=== PATIENT | female | born 1995 | race Caucasian/White ===

== ENCOUNTER 2016-09-27 21:17 | Inpatient (IN) | payer MEDICAID ==
[~2016-09-27] VITALS: Ht 172.7 cm
--- NOTE | ~2016-09-27 | OR ---
PATIENT'S NAME: [address] [facility] AGE: 21 Y [address] ROOM: [place] [address] LOCATION: GOBS ADMIT DATE: 09/27/2016 OR/Procedure Report DISCHARGE DATE: FAMILY PHYSICIAN: PHYSICIAN, NO ATTENDING PHYSICIAN: Rosa Gonzalez SURGEON: Rosa Gonzalez MD FERTILIZER LOADER: Dr. Cabrera Felipe. Dr. Felipe was necessary for adequate visualization of tissues and delivery of the fetus. DATE OF PROCEDURE: 09/28/2016 PREOPERATIVE DIAGNOSES: 1. Intrauterine at 39 weeks and 2 days. 2. Premature rupture of membranes. 3. Recurrent late heart rate decelerations. POSTOPERATIVE DIAGNOSES: 1. Intrauterine at 39 weeks and 2 days. 2. Premature rupture of membranes. 3. Recurrent late heart rate decelerations. PROCEDURE PERFORMED: Primary low transverse section. ANESTHESIA: Epidural. ESTIMATED BLOOD LOSS: 500 mL. FINDINGS: Male . score of 9 and 10. Weight 6 pounds and 11 ounces. Intact placenta, 3-vessel cord. Normal uterus, tubes, and ovaries. DRAINS: None. SPECIMENS: Placenta. COMPLICATIONS: None. INDICATIONS: This patient is a 21-year-old, G1, female who presented to Labor and Delivery at 39 weeks and 2 days gestation with premature rupture of membranes. She required Pitocin for labor induction. She did not progress for several hours, but then began to make some cervical change. When she made cervical change to about 4 to 5 cm, she began having late heart rate decelerations which were repetitive in nature. She still did have a moderate variability, so we decided to stop the Pitocin and watch the heart rate for a while. She continued to have late heart rate decelerations PATIENT'S NAME: [address] [facility] AGE: 21 Y [address] ROOM: [place] [address] LOCATION: [facility] ADMIT DATE: 09/27/2016 OR/Procedure Report DISCHARGE DATE: FAMILY PHYSICIAN: PHYSICIAN, NO ATTENDING PHYSICIAN: Rosa Gonzalez despite the fact that the Pitocin was stopped; and despite the maternal positioning, she was still only 5 cm, -1 station, about 90% effaced. At that point, decision was made for section due to the intolerance to labor. The risks, benefits, and alternatives to the procedure were discussed with the patient. She understood the risks to be, but not to be limited to bleeding, infection, damage to the bowel, bladder, ureter, and surrounding organs and desired to proceed. DESCRIPTION OF PROCEDURE: The patient was taken to the operating room. Anesthesia was found to be adequate. She was prepped and draped in dorsal supine position with leftward tilt. A Pfannenstiel skin incision was made. It was carried down through to the fascia. The fascia was incised across the midline. The fascial incision was extended. The rectus muscles were . The peritoneum was entered. The bladder blade was inserted. The uterus was incised in a low transverse fashion with the scalpel. The uterine incision was extended with vertical traction. Surgeon's hand was inserted into the uterus. The head was delivered. The rest of fetus delivered. The nose and mouth were bulb suctioned. Cord was clamped and cut. The was handed to awaiting team. Cord blood was drawn. Cord pH was drawn. The placenta delivered with manual traction. Uterus was exteriorized and cleared of clots and debris. It was repaired with 0 Vicryl in running locked fashion with hemostasis noted. It was returned to the abdomen. The gutters were cleared of clots and debris. Hemostasis was again noted. The fascia was repaired with 0 Vicryl. The subcutaneous adipose tissue was reapproximated with 2-0 Vicryl suture. The skin was closed with 4-0 Vicryl suture and Steri- Strips were placed. COMPLICATIONS: None. CONDITION: Mom stable in room. to nursery. MD OLIVIA WHATLEY/williams /[id number] d: 09/29/16 0706 t: 10/06/16 0914, OPERATIVE SUMMARY
[~2016-09-27 21:17] MED LIST: PRENATAL 1+1)(P1 TAB PO
[2016-09-27 23:21] LABS: BASOPHIL % 0.2 %; EOSINOPHIL # 0.1 K/uL (0.0-0.5); HEMOGLOBIN 12.7 g/dL (11.0-15.0); IMMATURE GRANULOCYTE # 0.1 K/uL (0.0-0.3); LYMPHOCYTE # 2.9 K/uL (0.8-4.0); LYMPHOCYTE % 22.9 %; MCH 31.4 pg (27.0-34.0); MCHC 32.6 gm/dL (32.0-36.5); MCV 96.5 fl (83.0-98.0); MONOCYTE # 0.9 K/uL (0.0-1.0); MONOCYTE % 7.1 %; NEUTROPHIL # (ANC) 8.5 K/uL (1.8-7.8); NEUTROPHIL % 67.8 %; NRBC % 0 /100WBC (0-0.00); PLATELET COUNT 222 K/uL (150-450); RBC 4.04 M/uL (3.50-5.00); RDW-CV 13.6 % (11.9-14.6); WBC 12.5 K/uL (4.0-11.0)
[2016-09-28 11:51] LABS: PCO2 53 mmHg (35-45)
[2016-09-28 11:52] LABS: BICARBONATE 24.7 mmol/L (18.0-23.0); PO2 22 mmHg (80-90)
--- NOTE | 2016-09-28 17:45 | NUR ---
17:1745 VSS. ff 1-2F below umbil.. small rubra flow. Percocet @ 1557. Toradol @ 1736. u/o wnl 3rd 1 hr vs @ 1900.
[2016-09-29 04:06] LABS: BASOPHIL % 0.3 %; EOSINOPHIL # 0.1 K/uL (0.0-0.5); EOSINOPHIL % 0.9 %; HEMOGLOBIN 10.1 g/dL (11.0-15.0); IMMATURE GRANULOCYTE # 0.1 K/uL (0.0-0.3); IMMATURE GRANULOCYTE % 0.6 %; LYMPHOCYTE # 3.2 K/uL (0.8-4.0); LYMPHOCYTE % 25.4 %; MCV 96.5 fl (83.0-98.0); MONOCYTE # 0.9 K/uL (0.0-1.0); MONOCYTE % 7.2 %; MPV 10.5 fl (9.4-12.4); NEUTROPHIL # (ANC) 8.3 K/uL (1.8-7.8); NEUTROPHIL % 65.6 %; NRBC % 0 /100WBC (0-0.00); RBC 3.16 M/uL (3.50-5.00); RDW-CV 13.7 % (11.9-14.6); WBC 12.7 K/uL (4.0-11.0)
[2016-09-29 04:09] LABS: HEMATOCRIT 30.5 % (33.0-46.0); MCHC 33.1 gm/dL (32.0-36.5); PLATELET COUNT 164 K/uL (150-450)
--- NOTE | 2016-09-29 04:56 | NUR ---
VSS. Fundus firm midline. Pt been up ambulating in her room and halls. on demand. SL to Left wrist.
--- NOTE | 2016-09-29 11:31 | NUR ---
Student charting read.
--- NOTE | 2016-09-29 13:54 | NUR ---
Met with patient and significant other at bedside today. Introduced myself and the role of the CM department. They have all the necessary items for baby. Informed mom that she needs to contact Medicaid and inform them that baby was born. Discussed signs and symptoms of post depression. They deny any discharge needs at this time.
--- NOTE | 2016-09-29 17:51 | NUR ---
Last VS: T:98.2 P:78 R: 16 BP: 132/78 Pain rating: .5 Last pain med: Percocet Medicated at: 1645 Effective: Yes R Lung sounds: cl, L Lung sounds: cl Fundus:, firm -1, Lochia: sm, Breasts: , Nipples: tender, using ointment Incision: , Incision appearance: approximated with ss/sut Incision closure: Bowel sounds: Passing flatus: yes Voiding well: yes Significant event: *.paternity/bc papers at bedside. needs notorized tomorrow.
--- NOTE | 2016-09-30 05:42 | NUR ---
VSS, fundus firm, 1 below, scant flow, incision dry and intact with steri strips, Motrin at 2127, Percocet at 0357
[2016-09-30] MEDS ORDERED: MOTRIN800 MG PO (10:43)
[2016-09-30] MEDS ORDERED: PERCOCET 5-3251 EACH PO (10:44)
--- NOTE | 2016-09-30 13:07 | NUR ---
Student charting read.
== END 2016-09-30 16:45 | disposition disaster alternative care site (69) | DRG 766 ==
LOC: GOBS 21:17 → GOBM 10-03 16:50 → EDSTATUS 10-03 21:16
PROVIDERS: Obstetrics & Gynecology; ADMIT Obstetrics & Gynecology
DX: O76 Abnormality in fetal heart rate and rhythm complicating labor and delivery (principal); Z37.0 Single live birth; Z3A.39 39 weeks gestation of pregnancy
CPT/HCPCS: J0690; J1885; J2590; J3010; J7120